=== PATIENT | male | born 1955 | race Caucasian/White ===

== ENCOUNTER 2022-03-19 20:29 | Emergency (ER) | payer MEDICARE ==
[2022-03-19 21:39] VITALS: BP 142/94; PULSE 83
== END 2022-03-19 20:50 | disposition home or self-care (01) ==
LOC: FB.ED 20:29
DX: S01.01XA Laceration without foreign body of scalp, initial encounter (principal); W55.01XA Bitten by cat, initial encounter
CPT/HCPCS: 99282